=== PATIENT | male | born 1965 | race Caucasian/White ===

== ENCOUNTER 2020-08-07 15:19 | Emergency (ER) | payer MEDICARE ==
[~2020-08-07] VITALS: Ht 182.9 cm; Wt 75.5 kg
[~2020-08-07 15:19] MED LIST: AMITRIPTYLINE H50 MG PO; CATAPRES0.1 MG PO; CLEOCIN HCL75 MG PO; CYCLOBENZAPRINE10 MG PO; DOXYCYCLINE HY100 M2 PO; EFFEXOR75 MG PO; ELAVIL25 MG PO; HYDROCODONE-AC1 EAC2 PO; HYDROCODONE-APA1 TAB PO; IBUPROFEN800 MG PO; MINIPRESS 5 MG C5 MG PO; MIRALAX17 GM PO; MOBIC7.5 MG PO; MORPHINE IMMEDI15 MG PO; NAPROSYN500 MG PO; NEURONTIN 400400 MG PO; PRILOSEC20 MG PO; PRINIVIL20 MG PO; SOMA350 MG PO; TOPAMAX100 MG PO; VANCOMYCIN 1 GM/1 G1 IV; XANAX1 MG PO; XANAX2 MG PO; ZOLOFT50 MG PO
[2020-08-07 15:23] VITALS: Ht 182.9 cm; Wt 75.5 kg
[2020-08-07 16:03] LABS: BASOPHILS 0.5 % (0-2); EOSINOPHILS 3.3 % (0-7); HEMOGLOBIN 11.3 g/dL (13.5-17.5); IMMATURE GRANULOCYTES 0.5 % (0-5); LYMPHOCYTE ABS# 0.84 10x3/uL (1.32-3.57); LYMPHOCYTES 22.8 % (15-50); MCHC 33.2 g/dL (31.0-37.0); MCV 93.2 fL (80.0-100.0); MEAN PLATELET VOLUME 12.3 fL (7.4-10.4); MONOCYTES 8.2 % (2-11); NEUTROPHIL ABS# 2.38 10x3/uL (1.78-5.38); NEUTROPHILS 64.7 % (40-80); RBC 3.65 10x6/uL (4.20-6.10); RDW 14.8 % (11.5-14.5); WBC 3.7 10x3/uL (4.8-10.8)
[2020-08-07 16:16] LABS: ANION GAP 14.7 mmol/L (8-16); CREATININE - SERUM 1.1 mg/dL (0.6-1.3); POTASSIUM - SERUM 4.7 mmol/L (3.5-5.1)
[2020-08-07 16:23] LABS: ALBUMIN 3.7 g/dL (3.4-5.0); BILIRUBIN - TOTAL 0.68 mg/dL (0.2-1.3); PROTEIN - SERUM 6.6 g/dL (6.4-8.2)
[2020-08-07 16:25] LABS: BILIRUBIN NEGATIVE (NEGATIVE); KETONE NEGATIVE (NEGATIVE); NITRITE NEGATIVE (NEGATIVE); UROBILINOGEN NORMAL mg/dL (< 2)
[2020-08-07 16:49] LABS: PLATELET COUNT 39 10x3/uL (130-400)
[2020-08-07 17:28] LABS: PLATELET ESTIMATE DECREASED
[2020-08-07 19:04] VITALS: BP 164/102
== END 2020-08-07 19:41 | disposition home or self-care (01) ==
LOC: D.ER 15:19
PROVIDERS: Family Medicine
DX: R33.9 Retention of urine, unspecified (principal); D69.6 Thrombocytopenia, unspecified; R10.30 Lower abdominal pain, unspecified; I10 Essential (primary) hypertension